=== PATIENT | male | born 1950 | race Caucasian/White ===

== ENCOUNTER 2024-03-16 10:23 | Outpatient (CLI) | payer OTHER | END 2024-03-16 23:59 | disposition home or self-care (01) | LOC: RAD 10:23 | PROVIDERS: ATTEND Podiatrist Foot & Ankle Surgery | DX: M19.072 Primary osteoarthritis, left ankle and foot (principal); M24.675 Ankylosis, left foot; L03.116 Cellulitis of left lower limb; M25.472 Effusion, left ankle; I70.0 Atherosclerosis of aorta | CPT/HCPCS: 73700 ==

== ENCOUNTER 2024-06-08 11:32 | Outpatient (CLI) | payer OTHER ==
[2024-06-08 13:27] LABS: BILIRUBIN,URINE NEGATIVE (Neg); CLARITY,URINE CLEAR (Clear); COLOR,URINE YELLOW (Yellow); GLUCOSE, URINE >=1000 mg/dl (Neg); KETONES,URINE NEGATIVE (Neg); LEUKOCYTE ESTERASE ,URINE NEGATIVE (Neg); NITRITES, URINE NEGATIVE (Neg); OCCULT BLOOD,URINE NEGATIVE (Neg); PROTEIN,URINE NEGATIVE (Neg); UROBILINOGEN,URINE 0.2 E.U/dL (0.2-1.0)
[2024-06-08 13:29] LABS: BASOPHILS % (AUTO) 0.7 % (0-1); EOSINOPHILS # (AUTO) 0.6 X10'3 (0-0.9); EOSINOPHILS % (AUTO) 7.4 % (0-6); LYMPHOCYTES # (AUTO) 1.8 X10'3 (1.1-4.8); LYMPHOCYTES % (AUTO) 24.1 % (21-51); MEAN CORPUSCULAR HGB CONC 34.2 g/dL (33.0-36.5); MEAN CORPUSCULAR VOLUME 93.7 FL (78-98); MEAN PLATELET VOLUME 7.9 FL (7.4-10.4); MONOCYTES # (AUTO) 0.7 X10'3 (0-0.9); MONOCYTES % (AUTO) 8.8 % (2-12); NEUTROPHILS # (AUTO) 4.5 X10'3 (1.8-7.7); PRE OP HEMATOCRIT 50.2 % (42.0-52.0); PRE OP HEMOGLOBIN 17.2 g/dL (14.0-17.9); PRE OP PLATELET COUNT 219 X10'3 (140-440); PRE OP WHITE BLOOD COUNT 7.6 10'3 (4.8-10.8); RED BLOOD COUNT 5.36 X10'6 (4.70-6.10); RED CELL DISTRIBUTION WIDTH 14.1 % (11.5-14.5)
[2024-06-08 13:33] LABS: UA COLLECTION TYPE CLN CATCH MIDSTREAM
[2024-06-08 13:35] LABS: WBC,URINE 0-4 /HPF (0-4)
[2024-06-08 13:36] LABS: BACTERIA,URINE NONE SEEN /HPF (Neg); RBC,URINE 0-2 /HPF (0-2); SQUAMOUS EPITHELIAL CELL,UR FEW /LPF (FEW)
[2024-06-08 13:38] LABS: ALBUMIN 4.1 G/DL (3.4-5.0); ALBUMIN/GLOBULIN RATIO 1.2 (1.1-1.5); BLOOD UREA NITROGEN 18 MG/DL (7-18); BUN/CREATININE RATIO 14.1 (10.0-20.0); CALCIUM 9.4 MG/DL (8.5-10.1); CHLORIDE 103 MMOL/L (99-107); CREATININE 1.28 MG/DL (0.60-1.10); PRE OP ALT 23 U/L (30-65); PRE OP ANION GAP 8 (8-16); PRE OP AST 16 U/L (10-37); PRE OP BILIRUB, TOTAL 0.8 MG/DL (0.0-1.0); PRE OP GLUCOSE 92 MG/DL (70-104); PRE OP POTASSIUM 4.6 MMOL/L (3.4-5.1); PRE OP SODIUM 139 MMOL/L (135-145); TOTAL CARBON DIOXIDE 27.9 MMOL/L (24-32); TOTAL PROTEIN 7.5 G/DL (6.4-8.2); eGFR 55 ML/MIN
[2024-06-08 13:44] LABS: ALKALINE PHOSPHATASE 130 IU/L (46-116)
[2024-06-09] MEDS ORDERED: BUSP30TA3 PO (17:12)
[2024-06-09] MEDS ORDERED: OMEP20TA43 PO (17:12)
[2024-06-09] MEDS ORDERED: DULO60CA65 PO (17:12)
[2024-06-09] MEDS ORDERED: CARV6.253 PO (17:12)
[2024-06-09] MEDS ORDERED: ATOR-2 PO (17:12)
[2024-06-09] MEDS ORDERED: OXYB5TAB21 PO (17:12)
[2024-06-09] MEDS ORDERED: LISI10TA27 PO (17:12)
[2024-06-09] MEDS ORDERED: METO5TAB98 PO (17:12)
[2024-06-09] MEDS ORDERED: EMPA25TA PO (17:12)
[2024-06-09] MEDS ORDERED: VIT D3 (17:12)
[2024-06-09] MEDS ORDERED: GABA-1405 PO (17:12)
== END 2024-06-08 23:59 | disposition home or self-care (01) ==
LOC: LAB 11:32 → EDSTATUS 06-18 13:45
PROVIDERS: ATTEND Podiatrist Foot & Ankle Surgery
DX: Z01.812 Encounter for preprocedural laboratory examination (principal); M19.072 Primary osteoarthritis, left ankle and foot; M20.42 Other hammer toe(s) (acquired), left foot; M96.0 Pseudarthrosis after fusion or arthrodesis
CPT/HCPCS: 36415; 80053; 81001; 85025

== ENCOUNTER 2024-09-10 05:32 | Inpatient (IN) | payer OTHER, MEDICARE ==
[2024-08-30 13:40] LABS: BASOPHILS % (AUTO) 0.4 % (0-1); EOSINOPHILS # (AUTO) 0.4 X10'3 (0-0.9); EOSINOPHILS % (AUTO) 4.7 % (0-6); LYMPHOCYTES % (AUTO) 21.7 % (21-51); MEAN CORPUSCULAR HGB CONC 33.8 g/dL (33.0-36.5); MEAN CORPUSCULAR VOLUME 91.8 FL (78-98); MONOCYTES # (AUTO) 0.7 X10'3 (0-0.9); MONOCYTES % (AUTO) 7.7 % (2-12); NEUTROPHILS # (AUTO) 6.1 X10'3 (1.8-7.7); NEUTROPHILS % (AUTO) 65.5 % (42-75); PRE OP HEMATOCRIT 49.6 % (42.0-52.0); PRE OP HEMOGLOBIN 16.8 g/dL (14.0-17.9); PRE OP PLATELET COUNT 227 X10'3 (140-440); PRE OP WHITE BLOOD COUNT 9.4 10'3 (4.8-10.8); RED BLOOD COUNT 5.41 X10'6 (4.70-6.10); RED CELL DISTRIBUTION WIDTH 14.5 % (11.5-14.5)
[2024-08-30 13:47] LABS: BILIRUBIN,URINE NEGATIVE (Neg); CLARITY,URINE CLEAR (Clear); COLOR,URINE YELLOW (Yellow); GLUCOSE, URINE >=1000 mg/dl (Neg); KETONES,URINE NEGATIVE (Neg); LEUKOCYTE ESTERASE ,URINE NEGATIVE (Neg); NITRITES, URINE NEGATIVE (Neg); OCCULT BLOOD,URINE NEGATIVE (Neg); PH,URINE 5.5 (4.8-8.0); PROTEIN,URINE NEGATIVE (Neg); UROBILINOGEN,URINE 0.2 E.U/dL (0.2-1.0)
[2024-08-30 13:48] LABS: UA COLLECTION TYPE CLN CATCH MIDSTREAM
[2024-08-30 14:03] LABS: RBC,URINE NONE SEEN /HPF (0-2)
[2024-08-30 14:04] LABS: BACTERIA,URINE FEW /HPF (Neg); MUCUS STRANDS NONE SEEN /LPF (Neg); SQUAMOUS EPITHELIAL CELL,UR FEW /LPF (FEW)
[2024-08-30 14:07] LABS: ALBUMIN 3.8 G/DL (3.4-5.0); ALBUMIN/GLOBULIN RATIO 1.2 (1.1-1.5); ALKALINE PHOSPHATASE 119 IU/L (46-116); BLOOD UREA NITROGEN 22 MG/DL (7-18); BUN/CREATININE RATIO 17.6 (10.0-20.0); CALCIUM 8.7 MG/DL (8.5-10.1); CHLORIDE 105 MMOL/L (99-107); CREATININE 1.25 MG/DL (0.60-1.10); PRE OP ALT 34 U/L (30-65); PRE OP ANION GAP 9 (8-16); PRE OP AST 16 U/L (10-37); PRE OP BILIRUB, TOTAL 0.5 MG/DL (0.0-1.0); PRE OP GLUCOSE 95 MG/DL (70-104); PRE OP POTASSIUM 4.4 MMOL/L (3.4-5.1); PRE OP SODIUM 140 MMOL/L (135-145); TOTAL PROTEIN 6.9 G/DL (6.4-8.2); eGFR 57 ML/MIN
[~2024-09-10] VITALS: Ht 182.9 cm; Wt 94.0 kg
[2024-09-10] VITALS (18 sets, daily range): BP systolic 102–147; BP diastolic 45–82; PULSE 62–89; RESP 13–20; TEMP 97.5–98.9; O2SAT 94–100
[2024-09-10] MEDS: DOCUMENT DATE & TIME OF BETA-BLOCKER PO ONE (05:30)
[~2024-09-10 05:32] MED LIST: ASPI81TA52 PO; ATOR-2 PO; BUSP30TA3 PO; CARV6.253 PO; DULO60CA65 PO; EMPA25TA PO; GABA-1405 PO; LISI10TA27 PO; METO5TAB98 PO; OMEP20TA43 PO; OXYB5TAB21 PO; VIT D3
[2024-09-10] MEDS: famotidine 20mg tablet PO ONE (06:18)
[2024-09-10] MEDS: ringers solution, lacted 1,000 ML IV SCH ×2 (06:18→08:10)
[2024-09-10] MEDS: VANCOMYCIN/H2O 1.5g/300mL PB 300 ML IV ONE (06:30)
[2024-09-10] MEDS ORDERED: bacitracin 15gm ointment TP ONE (06:44)
[2024-09-10] MEDS ORDERED: BUPIVAcaine 2.5mg/ml inj 50ml vial (contains preservative) ONE (06:44)
[2024-09-10] MEDS ORDERED: cloNIDine hcl/PF 100mcg/ml inj ONE (07:20)
[2024-09-10] MEDS ORDERED: sevoflurane 250ml liquid IH ONE (07:21)
[2024-09-10] MEDS ORDERED: fentaNYL /PF 50mcg/ml 5ml ampule ONE (07:23)
[2024-09-10] MEDS ORDERED: midazolam 1 mg/ML 2ml injection ONE (07:23)
[2024-09-10] MEDS: BUPIVAcaine/PF 2.5 mg/ml (0.25%) 30ml vial IJ ONE (08:02)
[2024-09-10] MEDS ORDERED: ondansetron/PF 4mg/2ml inj IV PRN ×2 (08:10→22:55)
[2024-09-10] MEDS ORDERED: meperidine/PF 25mg/ml syringe IV PRN (08:10)
[2024-09-10] MEDS ORDERED: HYDROmorphone/PF 0.2 MG/ML SYRINGE IV PRN ×2 (08:10)
[2024-09-10] MEDS ORDERED: acetaminophen 1,000mg/100ml IV 100 ML IV PRN (08:10)
[2024-09-10] MEDS ORDERED: morphine 4 MG/ML inj SYRINge IV PRN (08:10)
[2024-09-10] MEDS ORDERED: morphine 2 MG/ML inj. syringe IV PRN (08:10)
[2024-09-10] MEDS ORDERED: hydrALAZINE 20mg/ml inj. IV PRN (08:10)
[2024-09-10] MEDS ORDERED: labetalol 20mg/4ml (5mg/ml) syringe IV PRN (08:10)
[2024-09-10] MEDS ORDERED: proCHLORperazine 10 MG/2 ml inj IV PRN (08:10)
[2024-09-10] MEDS ORDERED: dexamethasone sod phosphate 4mg/ml inj. ONE (08:38)
[2024-09-10] MEDS ORDERED: ROPIVAcaine 0.5% (5mg/ml) 30ml vial ONE (08:38)
[2024-09-10] MEDS ORDERED: ondansetron/PF 4mg/2ml inj ONE (08:38)
[2024-09-10] MEDS ORDERED: LIDOcaine 2% (20mg/ml) 5ml vial ONE (08:39)
[2024-09-10] MEDS ORDERED: ePHEDrine 50MG/ML INJ. ONE (08:39)
[2024-09-10] MEDS ORDERED: 0.9 % SODIUM CHLORIDE 10 ML VIAL ONE ×2 (08:39)
[2024-09-10] MEDS ORDERED: propofol inj 20 ML IV ONE (08:39)
[2024-09-10] MEDS ORDERED: diphenhydrAMINE 25mg capsule PO PRN ×2 (10:30)
[2024-09-10] MEDS ORDERED: naloxone 0.4 mg/ml inj IV PRN (10:30)
[2024-09-10] MEDS ORDERED: magnesium hydroxide 30ml (MOM) UD suspension PO PRN (10:30)
[2024-09-10] MEDS ORDERED: bisacodyl 10mg suppository rectal RC PRN (10:30)
[2024-09-10] MEDS: potassium cl 20mEq in 1/2 NS 1,000 ML IV SCH (13:52)
[2024-09-10] MEDS ORDERED: DEXTROSE 15 GM of carb/4 tabs (each vial/BOTTLE has 4 tablets) PO PRN ×2 (20:15)
[2024-09-10] MEDS ORDERED: dextrose 50%-water 50ml dispensing syringe IV PRN ×2 (20:15)
[2024-09-10] MEDS ORDERED: glucagon, human recombinant 1mg kit SUBCUT PRN (20:15)
[2024-09-10] MEDS: EMPAGLIFLOZIN 25 MG TABLET PO SCH (20:35)
[2024-09-10] MEDS: sennosides 8.6mg tablet PO SCH (21:00)
[2024-09-10] MEDS: oxybutynin 5mg tablet PO SCH (21:24)
[2024-09-10] MEDS: atorvastatin 20mg tablet PO SCH (21:25)
[2024-09-10] MEDS: INSULIN LISPRO 100 UNIT/ML INSULN.PEN MULTI-DOSE SQ SCH (21:27)
[2024-09-10] MEDS: insulin glargine (Lantus) pen - multi-dose SQ SCH (21:28)
[2024-09-10] MEDS ORDERED: cyclobenzaprine 10mg tablet PO PRN (22:55)
[2024-09-10] MEDS: HYDROcodone/acetaminophen 5mg/325mg tablet PO PRN (23:44)
[2024-09-11 02:00] VITALS: BP 114/59; PULSE 72; RESP 18; TEMP 97.9; O2SAT 97
[2024-09-11 05:38] LABS: BASOPHILS % (AUTO) 0.2 % (0-1); EOSINOPHILS % (AUTO) 0 % (0-6); HEMATOCRIT 39.8 % (42.0-52.0); HEMOGLOBIN 13.8 g/dl (14.0-17.9); LYMPHOCYTES # (AUTO) 1.3 X10'3 (1.1-4.8); LYMPHOCYTES % (AUTO) 9.8 % (21-51); MEAN CORPUSCULAR HEMOGLOBIN 31.1 PG (27.0-31.0); MEAN CORPUSCULAR HGB CONC 34.6 g/dL (33.0-36.5); MEAN CORPUSCULAR VOLUME 89.8 FL (78-98); MEAN PLATELET VOLUME 8.4 FL (7.4-10.4); MONOCYTES % (AUTO) 7.2 % (2-12); NEUTROPHILS # (AUTO) 11.3 X10'3 (1.8-7.7); NEUTROPHILS % (AUTO) 82.8 % (42-75); PLATELET COUNT 181 X10'3 (140-440); RED BLOOD COUNT 4.44 X10'6 (4.70-6.10); RED CELL DISTRIBUTION WIDTH 14.1 % (11.5-14.5); WHITE BLOOD COUNT 13.7 X10'3 (4.5-11.0)
[2024-09-11 06:00] VITALS: BP 135/77; PULSE 65; RESP 17; TEMP 97.7; O2SAT 97
[2024-09-11 06:03] LABS: ANION GAP 12 (8-16); CHLORIDE 106 MMOL/L (99-107); POTASSIUM 4.1 MMOL/L (3.5-5.1); SODIUM 139 MMOL/L (135-145); TOTAL CARBON DIOXIDE 20.9 MMOL/L (24-32)
[2024-09-11] MEDS: aspirin 81mg, enteric-coated 1 TAB TABLET.DR PO SCH ×2 (08:00→08:43)
[2024-09-11] MEDS: metoclopramide 10mg tablet PO SCH (08:43)
[2024-09-11] MEDS: carvedilol 6.25mg tablet PO SCH (08:43)
[2024-09-11] MEDS: duloxetine 30mg CAPSULE.DR PO SCH (08:44)
[2024-09-11] MEDS: lisinopril 20mg tablet PO SCH (08:44)
[2024-09-11] MEDS: gabapentin 300mg capsule PO SCH (08:45)
[2024-09-11] MEDS: busPIRone 15mg tablet PO SCH (08:45)
[2024-09-11] MEDS: pantoprazole 40mg Tablet.DR PO SCH (08:45)
[2024-09-11 10:00] VITALS: BP 114/62; PULSE 71; RESP 16; TEMP 98.1; O2SAT 97
--- NOTE | 2024-09-15 08:56 | DISCHARGE SUMMARY ---
Discharge Summary Providers to CC ~ Discharge Summary Admission Diagnosis: S/P JOINT REPLACEMENT Hospital Course DATE OF ADMISSION: 09/11/24 DATE OF DISCHARGE: 09/12/24 Pt came to Surgical unit on 09/11/24 for LLE TAR, Patient went to surgery that day where a LLE TAR was performed under general, there were no complications, pt recovered well in PACU. Pt was admitted for s/p joint replacement and monitored, restarted home meds. During his time on the floor he was noted to be hyperglycemic to 240, also noted comorbdiites were HPT, CAD and DMII. Medicine was consulted to help manage. The next day on 09/12/24 patient worked well with PT and deemed safe to be DC. Pt also wanted to leave that day, but was doing well s/p. He was then DC home in a stable condition. Discharge Diagnosis\Comment: S/P TAR LLE Operations\Procedures: LLE TAR Consultants: Medicine Complications: NA Condition on DC: Stable Discharge Summary: DC home in stable condition, COnt NWB to the LLE. F/u in outpt in 2 weeks. *Problems/Diagnosis: (1) Ankle joint replacement status (2) Aftercare following ankle joint replacement surgery Total Time Spent on D/C: Up to 30 Minutes LILY CHATMAN DPM Sep 15, 2024 08:53
== END 2024-09-11 10:50 | disposition home or self-care (01) | DRG 469 ==
LOC: PAS 05:32 → ORTHO 4S 10:31
PROVIDERS: ADMIT Podiatrist Foot & Ankle Surgery; ATTEND Podiatrist Foot & Ankle Surgery
PROC: 0SPG0JZ Removal of Synthetic Substitute from Left Ankle Joint, Open Approach (ICD-10-PCS; 2024-09-10)
PROC: 0L8P0ZZ Division of Left Lower Leg Tendon, Open Approach (ICD-10-PCS; 2024-09-10)
PROC: 0QBR0ZZ Excision of Left Toe Phalanx, Open Approach (ICD-10-PCS; 2024-09-10)
PROC: 0QBR0ZZ Excision of Left Toe Phalanx, Open Approach (ICD-10-PCS; 2024-09-10)
PROC: 0QBR0ZZ Excision of Left Toe Phalanx, Open Approach (ICD-10-PCS; 2024-09-10)
PROC: 0QBR0ZZ Excision of Left Toe Phalanx, Open Approach (ICD-10-PCS; 2024-09-10)
PROC: 3E0T3BZ Introduction of Anesthetic Agent into Peripheral Nerves and Plexi, Percutaneous Approach (ICD-10-PCS; 2024-09-10)
PROC: 0SRG0JZ Replacement of Left Ankle Joint with Synthetic Substitute, Open Approach (ICD-10-PCS; principal; 2024-09-10 07:21)
DX: M19.072 Primary osteoarthritis, left ankle and foot (principal); M25.372 Other instability, left ankle; M25.472 Effusion, left ankle; M20.42 Other hammer toe(s) (acquired), left foot; E11.65 Type 2 diabetes mellitus with hyperglycemia; I25.10 Atherosclerotic heart disease of native coronary artery without angina pectoris; M24.572 Contracture, left ankle; Z88.0 Allergy status to penicillin; Z88.7 Allergy status to serum and vaccine
CPT/HCPCS: 36415; 73620; 76000; 80051; 80053; 81001; 82948; 83036; 85025; 87081; 87088; 97116; 97161; 97530; A4618; A6223; A6253; A6449; A7000; C1713; C1776; G0378; J0735; J1100; J1815; J2003; J2250; J2405; J2704; J2795; J3010; J3372; J3480; J3490; J7120